=== PATIENT | female | born 1985 | race Caucasian/White ===

== ENCOUNTER → 2017-03-27 | Outpatient (CLI) | payer BC, OTHER ==
[2017-03-27 15:52] LABS: BASOPHILS # (AUTO) 0.1 X10^3/uL (0.0-0.1); BASOPHILS % (AUTO) 0.9 % (0.2-1.0); EOSINOPHILS % (AUTO) 0.5 % (0.9-2.9); HEMATOCRIT 35.4 % (36.0-47.0); HEMOGLOBIN 11.9 g/dL (12.0-16.0); LYMPHOCYTES # (AUTO) 1.6 X10^3/uL (1.3-2.9); LYMPHOCYTES % (AUTO) 20.3 % (21.0-51.0); MEAN CORPUSCULAR HEMOGLOBIN 27.5 pg (27.0-34.0); MEAN CORPUSCULAR HGB CONC 33.7 g/dL (33.0-35.0); MEAN CORPUSCULAR VOLUME 81.7 fL (80.0-100.0); MEAN PLATELET VOLUME 9.1 fL (7.4-11.0); MONOCYTES # (AUTO) 0.8 x10^3/uL (0.3-0.8); MONOCYTES % (AUTO) 10.3 % (0.0-13.0); NEUTROPHILS # (AUTO) 5.2 x10^3/uL (2.2-4.8); PLATELET COUNT 210 X10^3/uL (150.0-450.0); RED BLOOD COUNT 4.33 X10^6/uL (3.5-5.4); RED CELL DISTRIBUTION WIDTH 14.8 % (11.6-16.5); WHITE BLOOD COUNT 7.6 X10^3/uL (3.6-10.0)
[2017-03-27 15:58] LABS: BLOOD UREA NITROGEN 6 mg/dL (7-18); CALCIUM 8.8 mg/dL (8.5-10.1); CARBON DIOXIDE 24.1 mmol/L (21-32); CHLORIDE 104 mmol/L (98-107); CREATININE 0.91 mg/dL (0.55-1.02); SODIUM 136 mmol/L (136-145); eGFR BLACK RACES > 60 (>60); eGFR NON BLACK RACES > 60 (>60)
[2017-03-27 15:59] LABS: BILIRUBIN,URINE NEGATIVE (NEGATIVE); BLOOD/HEMOGLOBIN,URINE 1+ (NEGATIVE); GLUCOSE, URINE NEGATIVE (NEGATIVE); KETONES,URINE NEGATIVE (NEGATIVE); LEUKOCYTE ESTERASE ,URINE 3+ (NEGATIVE); NITRITES,URINE NEGATIVE (NEGATIVE); PH,URINE 6.5 (5.0 - 8.0); PROTEIN,URINE 1+ (NEGATIVE); UROBILINOGEN,URINE NORMAL (NORMAL)
[2017-03-27 16:24] LABS: COLOR,URINE YELLOW (YELLOW)
[2017-03-27 16:46] LABS: SQUAMOUS EPITHELIAL CELL,UR MANY /HPF (NEGATIVE)
[2017-03-27 17:18] LABS: APPEARANCE,URINE SLIGHTLY HAZY (CLEAR); BACTERIA,URINE 1+ /HPF (NEGATIVE)
== END ==
LOC: EDSTATUS 10:59 → LAB 15:30
PROVIDERS: ATTEND Specialist
DX: Z01.818 Encounter for other preprocedural examination (principal); Z01.812 Encounter for preprocedural laboratory examination; Z34.83 Encounter for supervision of other normal pregnancy, third trimester
CPT/HCPCS: 36415; 80048; 80307; 81001; 85025; 86592; 86850; 86900; 86901; G0434

== ENCOUNTER 2017-03-29 06:21 | Inpatient (IN) | payer BC, OTHER ==
[~2017-03-29 06:21] MED LIST: D5 1/2 NS 1000 ML 1,000 ML IV ONE; D5LR 1L W PITOCIN 10 UNITS/L 10 UNITS/1,000 ML BAG IV ONE; LR 1000 ML IV 1,000 ML IV ONE; PITOCIN ONE
[2017-03-29] MEDS ORDERED: PHENERGAN INJ 25 MG IV PRN (07:12)
[2017-03-29] MEDS ORDERED: D5LR 1L W PITOCIN 10 UNITS/L 10 UNITS/1,000 ML BAG IV PRN (07:12)
[2017-03-29] MEDS ORDERED: REGLAN INJ 10 MG VIAL IVP PRN ×2 (07:12→19:42)
[2017-03-29] MEDS ORDERED: NUBAIN INJ 200 MG VIAL MULTIDOSE IVP PRN (07:12)
[2017-03-29] MEDS ORDERED: MORPHINE SULFATE INJ 2 MG INJ IVP PRN (07:12)
[2017-03-29] MEDS ORDERED: D5 1/2 NS 1000 ML 1,000 ML IV SCH (07:12)
--- NOTE | 2017-03-29 07:27 | DR.OB ---
OB Quick Note - Assessment/Plan Assessment/Plan: L&D 03/29/17 at 6:53am S-No complaint. O-Afebrile,VSS BOL=[id number] with good LTV, +accel, no decel. CTX=none CVX=3cm/50%/-1/VTX AROM with clear fluid. IUPC and FSE placed. A-IUP at 40 0/7 weeks for induction Rh- GERD Polyhydramnios P-Begin pitocin induction Anticipate
[2017-03-29] MEDS: D5 1/2 NS 1L W PITOCIN 20 UNITS/L 20 UNITS/1,000 ML BAG IV ONE ×2 (08:37→18:40)
[2017-03-29] MEDS ORDERED: FENTANYL INJ 100 mcg ONE (08:49)
[2017-03-29] MEDS ORDERED: NAROPIN EPIDURAL 0.2% + FENTANYL 90MCG 60 ML EPI ONE ×2 (08:49→14:11)
[2017-03-29] MEDS ORDERED: LR 1000 ML IV 1,000 ML IV ONE ×2 (09:00→18:18)
[2017-03-29] MEDS ORDERED: XYLOCAINE 1 % (PLAIN) ONE (09:25)
[2017-03-29] MEDS ORDERED: FENTANYL INJ 100 mcg EPI ONE (09:42)
[2017-03-29] MEDS ORDERED: NAROPIN EPIDURAL 0.2% 60 ML with FENTANYL INJ 100 mcg 90 MCG IVP SCH ×2 (10:00)
--- NOTE | 2017-03-29 11:53 | DR.OB ---
OB Quick Note - Assessment/Plan Assessment/Plan: L&D 03/29/17 at 11:45am Pitocin=10mu/min. S-No complaint. s/p epidural. O-Afebrile,VSS SRV=477 with good LTV, +accel, no decel. CTX=q 1 1/2 min., about 45-55mmHg CVX=6cm/90%/0 A-IUP at 40 0/7 weeks for induction Rh- GERD Polyhydramnios P-Cont. pitocin induction Anticipate
[2017-03-29] MEDS ORDERED: PITOCIN ONE (13:49)
[2017-03-29] MEDS ORDERED: ZOFRAN INJ 4 MG VIAL ONE (13:49)
[2017-03-29] MEDS ORDERED: DIPRIVAN VIAL ONE (13:49)
[2017-03-29] MEDS ORDERED: NEO-SYNEPHRINE INJ ONE (13:49)
[2017-03-29] MEDS ORDERED: MARCAINE 0.25% INJ ONE (16:10)
--- NOTE | 2017-03-29 16:43 | DR.OB ---
OB Quick Note - Assessment/Plan Assessment/Plan: L&D 03/29/17 at 4:35pm Pitocin=10mu/min. S-No complaint. O-Afebrile,VSS UNW=[id number] with good LTV, +accel, no decel. CTX=q 1 1/2 to 2 min., about 50-70mmHg CVX=9cm/100%/0 A-IUP at 40 0/7 weeks for induction Rh- GERD Polyhydramnios P-Cont. pitocin induction Anticipate
[2017-03-29] MEDS ORDERED: NS 50 ML IV + SPIKE MINIBAG* 50 ML IV ONE (18:05)
[2017-03-29] MEDS ORDERED: ANCEF VIAL 1 GM ONE (18:05)
[2017-03-29] MEDS ORDERED: XYLOCAINE 2% and EPINEPHRINE 1:100,000 ONE (18:17)
[2017-03-29] MEDS ORDERED: DURAMORPH ONE (18:19)
[2017-03-29] MEDS ORDERED: NS IRRIGATION 1000 ML 1,000 ML IR ONE (18:37)
[2017-03-29] MEDS: PITOCIN IVP ONE ×2 (18:38→18:40)
[2017-03-29] MEDS ORDERED: PHENERGAN INJ 25 MG IVP PRN (19:42)
[2017-03-29] MEDS ORDERED: BENADRYL INJ 50 MG VIAL IVP PRN ×2 (19:42→19:59)
[2017-03-29] MEDS ORDERED: ZOFRAN INJ 4 MG VIAL IVP PRN ×2 (19:42→19:59)
[2017-03-29] MEDS ORDERED: NARCAN INJ IVP PRN (19:59)
[2017-03-29] MEDS ORDERED: HYPERRHO S/D (or RHOGAM) IM PRN (19:59)
[2017-03-29] MEDS ORDERED: ADACEL TDaP IM ONE (19:59)
[2017-03-29] MEDS ORDERED: MYLICON TAB 80 MG CHEW PO PRN (19:59)
[2017-03-29] MEDS ORDERED: D5 1/2 NS 1000 ML 1,000 ML with PITOCIN 20 UNITS IV SCH ×2 (20:00)
[2017-03-29] MEDS: TORADOL 30 MG VIAL IVP PRN (23:13)
[2017-03-30 06:44] LABS: HEMATOCRIT 26.3 % (36.0-47.0)
[2017-03-30] MEDS: TORADOL 30 MG VIAL IVP PRN (06:47)
[2017-03-30 06:50] LABS: HEMOGLOBIN 8.8 g/dL (12.0-16.0)
[2017-03-30] MEDS ORDERED: ULTRAM PO PRN (07:29)
[2017-03-30] MEDS: HEMOCYTE-PLUS PO SCH ×2 (09:58)
[2017-03-30] MEDS: COLACE CAP 100 MG PO SCH ×2 (09:58→21:18)
[2017-03-30] MEDS: PROTONIX TAB 40 MG PO SCH (09:58)
[2017-03-30] MEDS: PRENATAL PLUS PO SCH (09:58)
[2017-03-30] MEDS: BACTROBAN OINT TOP SCH ×2 (13:52→21:21)
[2017-03-30] MEDS: MOTRIN TAB 800 MG PO PRN ×2 (13:53→22:59)
[2017-03-30] MEDS ORDERED: HYPERRHO S/D (or RHOGAM) IM ONE (18:24)
[2017-03-31] MEDS: BACTROBAN OINT TOP SCH (06:17)
[2017-03-31 08:43] VITALS: BP 98/60
[2017-03-31] MEDS: MOTRIN TAB 800 MG PO PRN (09:03)
[2017-03-31] MEDS: COLACE CAP 100 MG PO SCH (09:03)
[2017-03-31] MEDS: HEMOCYTE-PLUS PO SCH (09:04)
[2017-03-31] MEDS: PRENATAL PLUS PO SCH ×2 (09:04→09:08)
[2017-03-31] MEDS: PROTONIX TAB 40 MG PO SCH (09:05)
== END 2017-03-31 15:10 | disposition home or self-care (01) | DRG 775 ==
LOC: LD 06:21 → MED/SURG 20:00
PROVIDERS: ADMIT Specialist; ATTEND Specialist
PROC: 3E0234Z Introduction of Serum, Toxoid and Vaccine into Muscle, Percutaneous Approach (ICD-10-PCS; 2017-03-29)
PROC: 10D00Z1 Extraction of Products of Conception, Low, Open Approach (ICD-10-PCS; principal; 2017-03-29 18:15)
DX: O40.3XX0 Polyhydramnios, third trimester, not applicable or unspecified (principal); Z37.0 Single live birth; Z3A.40 40 weeks gestation of pregnancy; O99.613 Diseases of the digestive system complicating pregnancy, third trimester; O36.0990 Maternal care for other rhesus isoimmunization, unspecified trimester, not applicable or unspecified; O61.8 Other failed induction of labor; O62.0 Primary inadequate contractions; Z23 Encounter for immunization
CPT/HCPCS: 36415; 80307; 85014; 85018; 94640; A4216; A4222; S0020; S0197; G0434; J0690; J1885; J2001; J2370; J2405; J2590; J2790; J3010; J3490; J7042; J7120